=== PATIENT | female | born 1970 | race Caucasian/White ===

== ENCOUNTER 2023-08-10 08:00 | Outpatient (RCR) | payer OTHER, SELFPAY ==
[2023-07-20 09:52] VITALS: BP 181/79; PULSE 72; RESP 18; TEMP 36.7
--- NOTE | 2023-07-20 13:43 | PCM.WC.HP ---
History of Present Illness Date of Service: 07/20/23 Chief Complaint: nonhealing ulcer at site of incision right lateral foot History of Wound: Cecy is a pleasant 52 yo woman that presents to the wound center for evaluation and treatment of a right surgical ulcer referred by Dr. Cerna who performed surgery of her ligaments of her right foot on 05/25/23. She was placed into a boot on 05/31/23 and on 06/06/23 was seen in follow up and the sutures removed and there was dehiscence and increased swelling and was told to discontinue the boot. She was treated with doxycycline and has been using silvadene cream and changing the dressing twice daily with gauze. She reports heavy drainage. She recently completed a second 10 day treatment of doxycyline. The drainage is decreasing and the erythema has decreased but the ulcer is still present and healing very slowly. [facility] Medical History Hypothyroid Home Medications calcitriol 0.25 mcg capsule 0.25 mcg PO DAILY 07/20/23 [History Last Taken Unknown] cholecalciferol (vitamin D3) 125 mcg (5,000 unit) capsule (D3-5000) 5,000 unit PO .COMPLEX 07/20/23 [History Last Taken Unknown] glucosamine HCl 1,500 mg tablet 1,500 mg PO DAILY 07/20/23 [History Last Taken Unknown] levothyroxine 200 mcg tablet mcg PO 07/20/23 [History Last Taken Unknown] magnesium oxide 400 mg PO DAILY 07/20/23 [History Last Taken Unknown] omeprazole 40 mg capsule,delayed release 40 mg PO DAILY 07/20/23 [History Last Taken Unknown] oxybutynin chloride 15 mg tablet,extended release 24 hr 15 mg PO DAILY 07/20/23 [History Last Taken Unknown] ROS Constitutional Constitutional: Denies chills, fatigue or fever(s) Eyes Eyes: Denies blurry vision, change in vision or loss of vision ENT HEENT: Denies dysphagia, hearing loss or sore throat Cardiovascular Cardiovascular: Denies chest pain, edema or palpitations Respiratory/Chest Respiratory/Chest: Denies dry cough, dyspnea, dyspnea on exertion, productive cough or wheezing Gastrointestinal Gastrointestinal: Denies diarrhea, nausea or vomiting Genitourinary Genitourinary: Denies dysuria or polyuria Musculoskeletal Musculoskeletal: Denies arthralgias, joint stiffness or muscle weakness Integumentary Integumentary: Reports erythema and wounds Neurologic Neurologic: Denies dizziness, memory loss or weakness Psychiatric Psychiatric: Denies homicidal ideation or suicidal ideation Endocrine Endocrinology: Denies polydipsia, polyphagia or polyuria Hematologic/Lymphatic Hematologic/Lymphatic: Denies easy bleeding or easy bruising Allergic/Immunologic Allergic/Immunologic: Denies throat swelling, tongue swelling or urticaria Vital Signs Vital Signs Vital Signs: 07/20/23 09:52 Temperature 98.0 F Temperature Source Temporal Pulse Rate 72 Respiratory Rate 18 Blood Pressure 181/79 H Blood Pressure Mean 113 Blood Pressure Source Monitor Blood Pressure Position Sitting Blood Pressure Location Left Arm Oxygen Delivery Method Room Air Physical Exam Const alert, oriented x3 and no apparent distress General Appearance: cooperative and comfortable HEENT normocephalic and head/scalp atraumatic Resp normal respiratory effort Effort and Inspection: able to speak in complete sentences Cardio regular rate and regular rhythm Skin Wounds: wounds noted Wound Narrative: as in clinical panel Psych mental status grossly normal, thought process normal, cooperative and affect normal Debridement Note Debridement Note Wound debrided: right lateral foot Laterality: Right Type of Debridement: Excisional debridement Anesthesia Used: 4% Lidocaine Solution, 5% Lidocaine Gel and Cetacaine Depth: Down to and including healthy tissue and in the subcutaneous layer Percentage of wound debrided: 100 Instrument Used: 5mm curette Tissue Removed: Yellow slough, devitalized tissue Severity: Fat Layer Exposed Amount of bleeding with debridement: Mild Bleeding Controlled with: Compression and gauze Patient tolerated procedure: Patient tolerated procedure well Post-Debridement Measurements and Additional Note: Post-Debridement Measurements/Treatment - Nurse 1 - General Ulcer Assessment Start: 07/20/23 09:51 Freq: Status: Active Protocol: [email or web address].[email or web address] Activity Type Activity Date Activity User E-sign Co-sign Detail Recorded Client Recorded Date Recorded By Document 07/20/23 09:52 NE Desktop 07/20/23 10:09 NE 07/20/23 09:52 - Today's Visit Information Type of service Initial Visit Arrival Mode Ambulatory Accompanied by tamiko Patient Identification Verified (Name & Yes ) Vital Signs Temperature (97.8 F-99.1 F) 98.0 F Temperature Source Temporal Pulse Rate (60-100) 72 Pulse Location Monitor Respiratory Rate (12-18) 18 Respiratory rate source Observation Oxygen Delivery Method Room Air Blood Pressure (90/60-120/80) 181/79 H Blood Pressure Mean 113 Source Monitor Position Sitting Blood Pressure Location Left Arm History Since Last Visit- (Skip if this is Patient's initial visit) Left Footwear Regular Shoe Right Footwear Regular Shoe Pain Scale: 0-10 Numeric Is Patient Pain Free? Yes - Nurse 1 - General Ulcer Measurement Start: 07/20/23 09:51 Freq: Status: Active Protocol: Activity Type Activity Date Activity User E-sign Co-sign Detail Recorded Client Recorded Date Recorded By Document 07/20/23 09:52 NE Desktop 07/20/23 10:09 NE 07/20/23 09:52 Wound Center Nurse 1 #1 Right Ankle -Current Size (cm) - Length 3 -Current Size (cm) - Width 0.9 -Current Size (cm) - Depth 0.3 -Total Square Cm 2.7 -Date of Last Picture (Recall this 07/20/23 field) -Photo Taken Yes -Tunneling No -Undermining/Tunneling No -Circular Undermining No -Exudate Amt Medium -Exudate Type Serous -Wound Margin Thickened & Rolled Under -Granulation Amt Medium (34-66%) -Granulation Quality Pale,[place] -Necrosis Amt Small (1-33%) -Necrotic Tissue Type Adherent Slough -Texture (Ambreen-wound Skin Appearance) Assessed -Moisture (Ambreen-wound Skin Appearance) Assessed -Color (Ambreen-wound Skin Appearance) Assessed -Temperature (Ambreen-wound Skin No Abnormality Appearance) (Pt Warm) -Tenderness on Palpation (Ambreen-wound No Skin Appearance) -Ulcer Cleansing Rinsed/ Irrigated with Saline -Foul Odor after Cleansing No -Anesthetic Used 5% Lidocaine Gel Lower Limb Edema Present NA - Nurse 2 - General Ulcer CM Notes Start: 07/20/23 09:51 Freq: Status: Active Protocol: Activity Type Activity Date Activity User E-sign Co-sign Detail Recorded Client Recorded Date Recorded By Document 07/20/23 10:33 Desktop 07/20/23 11:07 07/20/23 10:33 Wound Center Nurse 2 #1 Right Ankle -Time 10:34 -Correct Patient Yes -Correct Side, Site, Position Yes -Correct Procedure Yes -Procedure Performed Yes -Type of Procedure Debridement -Clinical Debridement Subcutaneous -Tissue Removed Subcutaneous -Post Debridement (cm) - Length 0.9 -Post Debridement (cm) - Width 3.0 -Post Debridement (cm) - Depth 0.3 -Total Square (Post) (cm) 2.70 -Area of Debridement (cm) - Length 0.9 -Area of Debridement (cm) - Width 3.0 -Total Square (Area) (cm) 2.70 -Tunneling No -Undermining/Tunneling No -Circular Undermining No -Wound/Ulcer Outcome Not Healed -Ulcer Cleansing Rinsed/ Irrigated with Saline -Foul Odor after Cleansing No -Bioengineered Tissue No -Bleeding Controlled with Pressure -Treatment Response Procedure Tolerated Well -Debridement - Subq, 1st 20sq cm Yes Pain Scale: 0-10 Numeric Is Patient Pain Free? Yes - Nurse 3 - General Ulcer D/C NN Start: 07/20/23 09:51 Freq: Status: Active Protocol: Activity Type Activity Date Activity User E-sign Co-sign Detail Recorded Client Recorded Date Recorded By Document 07/20/23 11:17 Desktop 07/20/23 11:19 07/20/23 11:17 Wound Care Center Nurse 3 #1 Right Ankle -Ulcer Cleansing Not Cleansed -Foul Odor after Cleansing No -Primary Dressing Applied Aquacel Extra, Mepilex Border -Aquacel Extra 2 -Mepilex Border 2 Right -Lotion applied to leg before No compression wrap -Tubular Bandage Single Layer -Size of Tubigrip Used Size F -Size F ($) 1 Pain Scale: 0-10 Numeric Is Patient Pain Free? Yes - Visit Discharge Discharge Condition Stable Ambulatory Status Ambulatory Transportation Private Auto Medication Reconcilliation completed & Yes provided to patient/care provider Clinical Summary of Care Provided Yes Assessment/Plan Assessment/Plan (1) Right foot ulcer: CODE(S): L97.519 - Non-pressure chronic ulcer of other part of right foot with unspecified severity QUALIFIERS: Non-pressure ulcer stage: with fat layer exposed Qualified Code(s): L97.512 - Non-pressure chronic ulcer of other part of right foot with fat layer exposed (2) Chronic ulcer of right foot with fat layer exposed: CODE(S): L97.512 - Non-pressure chronic ulcer of other part of right foot with fat layer exposed (3) Nonhealing surgical wound: CODE(S): T81.89XA - Other complications of procedures, not elsewhere classified, initial encounter QUALIFIERS: Encounter type: initial encounter Qualified Code(s): T81.89XA - Other complications of procedures, not elsewhere classified, initial encounter (4) Hypothyroid: CODE(S): E03.9 - Hypothyroidism, unspecified QUALIFIERS: Hypothyroidism type: acquired Qualified Code(s): E03.9 - Hypothyroidism, unspecified PLAN: Plan Debridement performed today in clinic as annotated above. At home wound-care instructions: She will clean ulcer with soap and water daily. Will have her dress the ulcer with Aquacel Extra and cover with silicone bordered foam dressing daily. Keep dressing clean and dry. Off-loading: The patient was instructed to avoid pressure and friction on the affected areas. Reposition every 2 hours at minimum. Avoid prolonged standing and/or dangling of legs. When seated, feet should be elevated at chest level. Frequent ambulation is encouraged. Diet: Patient encouraged to increase protein intake while taking caution to avoid high carbohydrate and/or sugar intake. Labs/cultures/imaging: Wound culture taken today. Follow-up: Return in 1 week for wound care follow up. Return sooner or report to the emergency room should symptoms worsen, or new symptoms arise. Note: [employer] speech recognition sawmill or timber yard worker software was used to create portions of this document. Sound-alike and misspelled words, as well as other sawmill or timber yard worker errors may be contained in the documentation.
--- NOTE | 2023-07-25 10:52 | WC ---
Called prescription for Bactrim DS to [facility] pharmacy in [place]. Patient's culture is pos for MRSA. Contacted patient to let her know and to tell her about her prescription. RX paper order is in chart. Instructed to call with any questions or concerns.
--- NOTE | 2023-07-25 16:53 | WC ---
RT LAT ANKLE INITIAL
[2023-07-27 11:34] VITALS: BP 137/86; PULSE 75; RESP 18; TEMP 36.6
--- NOTE | 2023-07-27 12:29 | PCM.WC.PN ---
History of Present Illness Date of Service: 07/27/23 Chief Complaint: nonhealing ulcer at site of incision right lateral foot History of Wound: Cecy is a pleasant 52 yo woman that presents to the wound center for evaluation and treatment of a right surgical ulcer referred by Dr. Cerna who performed surgery of her ligaments of her right foot on 05/25/23. She was placed into a boot on 05/31/23 and on 06/06/23 was seen in follow up and the sutures removed and there was dehiscence and increased swelling and was told to discontinue the boot. She was treated with doxycycline and has been using silvadene cream and changing the dressing twice daily with gauze. She reports heavy drainage. She recently completed a second 10 day treatment of doxycyline. The drainage is decreasing and the erythema has decreased but the ulcer is still present and healing very slowly. Subjective Subjective Cecy returns today for follow up of ulcer right lateral foot. Wound culture was positive for MRSA and she was started on Bactrim DS for 7 days. She is tolerating this well. She notes improvement in the size of the ulcer and also much less drainage. Edema is improved as well. Denies pain, fever, chills, odor. Objective Data Objective Data Vital Signs: Vital Signs Temp Pulse Resp BP O2 Del Method 98 F 75 18 137/86 H Room Air 07/27/23 11:34 07/27/23 11:34 07/27/23 11:34 07/27/23 11:34 07/20/23 09:52 Oxygen Delivery Method Room Air Lab / Micro Data Micro: Microbiology 07/20/23 11:00 Wound Abcess - Ankle Gram Stain - Final 07/20/23 11:00 Wound Abcess - Ankle Wound Culture - Final Meth. resistant Staph. aureus 07/20/23 11:00 Wound Abcess - Ankle Anaerobic Culture - Final No anaerobic bacteria isolated. Physical Exam Const alert, oriented x3 and no apparent distress General Appearance: cooperative and comfortable HEENT normocephalic and head/scalp atraumatic Resp normal respiratory effort Effort and Inspection: able to speak in complete sentences Cardio regular rate and regular rhythm Skin Wounds: wounds noted Wound Narrative: as in clinical panel Psych mental status grossly normal, thought process normal, cooperative and affect normal Debridement Note Debridement Note Wound debrided: right lateral foot Laterality: Right Type of Debridement: Excisional debridement Anesthesia Used: 4% Lidocaine Solution, 5% Lidocaine Gel and Cetacaine Depth: Down to and including healthy tissue and in the subcutaneous layer Percentage of wound debrided: 100 Instrument Used: 3mm curette Tissue Removed: Yellow slough, devitalized tissue Severity: Fat Layer Exposed Amount of bleeding with debridement: Mild Bleeding Controlled with: Compression and gauze Patient tolerated procedure: Patient tolerated procedure well Post-Debridement Measurements and Additional Note: Post-Debridement Measurements/Treatment KATIE - Nurse 1 - General Ulcer Assessment Start: 07/20/23 09:51 Freq: Status: Active Protocol: MONSE Activity Type Activity Date Activity User E-sign Co-sign Detail Recorded Client Recorded Date Recorded By Document 07/20/23 09:52 DVDPlay 07/20/23 10:09 MT Document 07/27/23 11:34 CO Sensserop 07/27/23 11:41 MT 07/20/23 07/27/23 09:52 11:34 KATIE - Today's Visit Information Type of service Initial Visit Follow-up Visit (Physician/MANAG[employer] ) Arrival Mode Ambulatory Ambulatory Accompanied by tamiko Patient Identification Verified (Name & Yes Yes ) Vital Signs Temperature (97.8 F-99.1 F) 98.0 F 98 F Temperature Source Temporal Temporal Pulse Rate (60-100) 72 75 Pulse Location Monitor Monitor Respiratory Rate (12-18) 18 18 Respiratory rate source Observation Observation Oxygen Delivery Method Room Air Blood Pressure (90/60-120/80) 181/79 H 137/86 H Blood Pressure Mean (mm Hg) 113 103 Source Monitor Monitor Position Sitting Sitting Blood Pressure Location Left Arm Right Arm History Since Last Visit- (Skip if this is Patient's initial visit) Has dressing in place as prescribed Yes Has compression in place as prescribed Yes Left Footwear Regular Shoe Regular Shoe Right Footwear Regular Shoe Regular Shoe Pain Scale: 0-10 Numeric Is Patient Pain Free? Yes Yes KATIE Pacheco Nurse 1 - General Ulcer Measurement Start: 07/20/23 09:51 Freq: Status: Active Protocol: Activity Type Activity Date Activity User E-sign Co-sign Detail Recorded Client Recorded Date Recorded By Document 07/20/23 09:52 Wi-Chiop 07/20/23 10:09 MT Document 07/27/23 11:34 CO Sensserop 07/27/23 11:41 MT 07/20/23 07/27/23 09:52 11:34 Wound Center Nurse 1 #1 Right Ankle -Current Size (cm) - Length 3 0.5 -Current Size (cm) - Width 0.9 1.9 -Current Size (cm) - Depth 0.3 0.1 -Total Square Cm 2.7 0.95 -Date of Last Picture (Recall this 07/20/23 field) -Photo Taken Yes No -Tunneling No No -Undermining/Tunneling No No -Circular Undermining No No -Exudate Amt Medium Small -Exudate Type Serous Serosanguineous -Wound Margin Thickened & Flat & Intact Rolled Under -Granulation Amt Medium (34-66%) Large (67-100%) -Granulation Quality Pale,[place] Pale,[place] -Necrosis Amt Small (1-33%) Medium (34-66%) -Necrotic Tissue Type Adherent Slough Adherent Slough -Texture (Ambreen-wound Skin Appearance) Assessed Assessed -Moisture (Ambreen-wound Skin Appearance) Assessed Assessed -Color (Ambreen-wound Skin Appearance) Assessed Assessed -Temperature (Ambreen-wound Skin No Abnormality No Abnormality Appearance) (Pt Warm) (Pt Warm) -Tenderness on Palpation (Ambreen-wound No No Skin Appearance) -Ulcer Cleansing Rinsed/ Rinsed/ Irrigated with Irrigated with Saline Saline -Foul Odor after Cleansing No -Anesthetic Used 5% Lidocaine 5% Lidocaine Gel Gel Lower Limb Edema Present NA WC - Nurse 2 - General Ulcer CM Notes Start: 07/20/23 09:51 Freq: Status: Active Protocol: Activity Type Activity Date Activity User E-sign Co-sign Detail Recorded Client Recorded Date Recorded By Document 07/20/23 10:33 [employer] 07/20/23 11:07 Document 07/27/23 11:54 Desktop 07/27/23 12:08 07/20/23 07/27/23 10:33 11:54 Wound Center Nurse 2 #1 Right Ankle -Time 10:34 11:54 -Correct Patient Yes Yes -Correct Side, Site, Position Yes Yes -Correct Procedure Yes Yes -Procedure Performed Yes Yes -Type of Procedure Debridement Debridement -Clinical Debridement Subcutaneous Subcutaneous -Tissue Removed Subcutaneous Subcutaneous -Post Debridement (cm) - Length 0.9 0.4 -Post Debridement (cm) - Width 3.0 2.4 -Post Debridement (cm) - Depth 0.3 0.2 -Total Square (Post) (cm) 2.70 0.96 -Area of Debridement (cm) - Length 0.9 0.4 -Area of Debridement (cm) - Width 3.0 2.4 -Total Square (Area) (cm) 2.70 0.96 -Tunneling No No -Undermining/Tunneling No No -Circular Undermining No No -Wound/Ulcer Outcome Not Healed Not Healed -Ulcer Cleansing Rinsed/ Rinsed/ Irrigated with Irrigated with Saline Saline -Foul Odor after Cleansing No No -Bioengineered Tissue No No -Bleeding Controlled with Pressure Pressure -Treatment Response Procedure Procedure Tolerated Well Tolerated Well -Debridement - Subq, 1st 20sq cm Yes Yes Pain Scale: 0-10 Numeric Is Patient Pain Free? Yes Yes - Nurse 3 - General Ulcer D/C NN Start: 07/20/23 09:51 Freq: Status: Active Protocol: Activity Type Activity Date Activity User E-sign Co-sign Detail Recorded Client Recorded Date Recorded By Document 07/20/23 11:17 Sensserop 07/20/23 11:19 Document 07/27/23 12:25 CO [employer] 07/27/23 12:27 CO 07/20/23 07/27/23 11:17 12:25 Wound Care Center Nurse 3 #1 Right Ankle -Ulcer Cleansing Not Cleansed Rinsed/ Irrigated with Saline -Foul Odor after Cleansing No -Primary Dressing Applied Aquacel Extra, Aquacel Extra Mepilex Border -Other Dressing adaptic than extra -Primary Dressing Covered/Secured with Dry Gauze, Secured with Tape -Aquacel Extra 2 1 -Mepilex Border 2 Right -Lotion applied to leg before No compression wrap -Tubular Bandage Single Layer -Size of Tubigrip Used Size F -Size F ($) 1 Pain Scale: 0-10 Numeric Is Patient Pain Free? Yes Yes - Visit Discharge Discharge Condition Stable Ambulatory Status Ambulatory Transportation Private Auto Medication Reconcilliation completed & Yes provided to patient/care provider Clinical Summary of Care Provided Yes Assessment/Plan Assessment/Plan (1) Right foot ulcer: CODE(S): L97.519 - Non-pressure chronic ulcer of other part of right foot with unspecified severity QUALIFIERS: Non-pressure ulcer stage: with fat layer exposed Qualified Code(s): L97.512 - Non-pressure chronic ulcer of other part of right foot with fat layer exposed (2) Chronic ulcer of right foot with fat layer exposed: CODE(S): L97.512 - Non-pressure chronic ulcer of other part of right foot with fat layer exposed (3) Nonhealing surgical wound: CODE(S): T81.89XA - Other complications of procedures, not elsewhere classified, initial encounter QUALIFIERS: Encounter type: initial encounter Qualified Code(s): T81.89XA - Other complications of procedures, not elsewhere classified, initial encounter (4) Hypothyroid: CODE(S): E03.9 - Hypothyroidism, unspecified QUALIFIERS: Hypothyroidism type: acquired Qualified Code(s): E03.9 - Hypothyroidism, unspecified PLAN: Plan Debridement performed today in clinic as annotated above. At home wound-care instructions: She will clean ulcer with soap and water daily. Will have her continue to dress the ulcer with Aquacel Extra but place adaptic first and cover all with silicone bordered foam dressing daily. Keep dressing clean and dry. Off-loading: The patient was instructed to avoid pressure and friction on the affected areas. Reposition every 2 hours at minimum. Avoid prolonged standing and/or dangling of legs. When seated, feet should be elevated at chest level. Frequent ambulation is encouraged. Diet: Patient encouraged to increase protein intake while taking caution to avoid high carbohydrate and/or sugar intake. Labs/cultures/imaging: Wound culture was positive for MRSA and she was placed on Bactrim DS. Follow-up: Return in 2 weeks for wound care follow up. Return sooner or report to the emergency room should symptoms worsen, or new symptoms arise. Note: [employer] speech recognition fence installer helper software was used to create portions of this document. Sound-alike and misspelled words, as well as other fence installer helper errors may be contained in the documentation.
--- NOTE | 2023-08-03 10:54 | WC ---
Inital visit #1 right ankle
[2023-08-10 08:08] VITALS: BP 148/85; PULSE 63; RESP 18; TEMP 35.8
--- NOTE | 2023-08-10 13:54 | PN.PCM_ITS ---
History of Present Illness Date of Service: 08/10/23 Chief Complaint: nonhealing ulcer at site of incision right lateral foot History of Wound: Cecy is a pleasant 52 yo woman that presents to the wound center for evaluation and treatment of a right surgical ulcer referred by Dr. Cerna who performed surgery of her ligaments of her right foot on 05/25/23. She was placed into a boot on 05/31/23 and on 06/06/23 was seen in follow up and the sutures removed and there was dehiscence and increased swelling and was told to discontinue the boot. She was treated with doxycycline and has been using silvadene cream and changing the dressing twice daily with gauze. She reports heavy drainage. She recently completed a second 10 day treatment of doxycyline. The drainage is decreasing and the erythema has decreased but the ulcer is still present and healing very slowly. Subjective Subjective Cecy returns today for follow up of ulcer right lateral foot. She notes improvement in the size of the ulcer and almost no drainage. Edema is much improved as well. Denies pain, fever, chills, odor. Objective Data Objective Data Vital Signs: Vital Signs Temp Pulse Resp BP O2 Del Method 96.4 F L 63 18 148/85 H Room Air 08/10/23 08:08 08/10/23 08:08 08/10/23 08:08 08/10/23 08:08 07/20/23 09:52 Oxygen Delivery Method Room Air Lab / Micro Data Micro: Microbiology 07/20/23 11:00 Wound Abcess - Ankle Gram Stain - Final 07/20/23 11:00 Wound Abcess - Ankle Wound Culture - Final Meth. resistant Staph. aureus 07/20/23 11:00 Wound Abcess - Ankle Anaerobic Culture - Final No anaerobic bacteria isolated. Physical Exam Const alert, oriented x3 and no apparent distress General Appearance: cooperative and comfortable HEENT normocephalic and head/scalp atraumatic Resp normal respiratory effort Effort and Inspection: able to speak in complete sentences Cardio regular rate and regular rhythm Skin Wounds: wounds noted Wound Narrative: as in clinical panel Psych mental status grossly normal, thought process normal, cooperative and affect normal Debridement Note Debridement Note Wound debrided: right lateral foot Laterality: Right Type of Debridement: Excisional debridement Anesthesia Used: 4% Lidocaine Solution and 5% Lidocaine Gel Depth: Down to and including healthy tissue and in the subcutaneous layer Percentage of wound debrided: 100 Instrument Used: 3mm curette Tissue Removed: Yellow slough, devitalized tissue Severity: Fat Layer Exposed Amount of bleeding with debridement: Mild Bleeding Controlled with: Compression and gauze Patient tolerated procedure: Patient tolerated procedure well Post-Debridement Measurements and Additional Note: Post-Debridement Measurements/Treatment WC - Nurse 1 - General Ulcer Assessment Start: 07/20/23 09:51 Freq: Status: Active Protocol: MONSE Activity Type Activity Date Activity User E-sign Co-sign Detail Recorded Client Recorded Date Recorded By Document 07/20/23 09:52 MT Desktop 07/20/23 10:09 MT Document 07/27/23 11:34 MT Desktop 07/27/23 11:41 MT Document 08/10/23 08:08 RB Desktop 08/10/23 08:09 RB 07/20/23 07/27/23 08/10/23 09:52 11:34 08:08 - Today's Visit Information Type of service Initial Visit Follow-up Visit Follow-up Visit (Physician/ONBOARDING SPECIALIST (Physician/ONBOARDING SPECIALIST ) ) Arrival Mode Ambulatory Ambulatory Ambulatory Transfer Assistance None Accompanied by tamiko Patient Identification Verified (Name & Yes Yes Yes ) Patient Requires Transmission-Based No Precautions Vital Signs Temperature (97.8 F-99.1 F) 98.0 F 98 F 96.4 F L Temperature Source Temporal Temporal Temporal Pulse Rate (60-100) 72 75 63 Pulse Location Monitor Monitor Monitor Respiratory Rate (12-18) 18 18 18 Respiratory rate source Observation Observation Observation Oxygen Delivery Method Room Air Blood Pressure (90/60-120/80) 181/79 H 137/86 H 148/85 H Blood Pressure Mean (mm Hg) 113 103 106 Source Monitor Monitor Monitor Position Sitting Sitting Semi-Fowlers Blood Pressure Location Left Arm Right Arm Left Arm History Since Last Visit- (Skip if this is Patient's initial visit) Have you changed medications since your No last visit? Any new allergies or adverse reactions No Had a fall/change in ADL's that may No increase risk of falls Signs or symptoms of abuse and/or No neglect since last visit Have you been in the hospital since your No last visit? Has dressing in place as prescribed Yes Yes Has compression in place as prescribed Yes Yes Has offloadiing in place as prescribed No Experienced any changes in pain level or No management Left Footwear Regular Shoe Regular Shoe Right Footwear Regular Shoe Regular Shoe Pain Scale: 0-10 Numeric Is Patient Pain Free? Yes Yes Yes WC - Nurse 1 - General Ulcer Measurement Start: 07/20/23 09:51 Freq: Status: Active Protocol: Activity Type Activity Date Activity User E-sign Co-sign Detail Recorded Client Recorded Date Recorded By Document 07/20/23 09:52 MT Desktop 07/20/23 10:09 MT Document 07/27/23 11:34 MT Desktop 07/27/23 11:41 MT Document 08/10/23 08:08 RB Desktop 08/10/23 08:09 RB 07/20/23 07/27/23 08/10/23 09:52 11:34 08:08 Wound Center Nurse 1 #1 Right Ankle -Combined with other wound No -Current Size (cm) - Length 3 0.5 0.1 -Current Size (cm) - Width 0.9 1.9 0.1 -Current Size (cm) - Depth 0.3 0.1 0.1 -Total Square Cm 2.7 0.95 0.01 -Date of Last Picture (Recall this 07/20/23 field) -Photo Taken Yes No Yes -Tunneling No No No -Undermining/Tunneling No No No -Circular Undermining No No No -Exudate Amt Medium Small Medium -Exudate Type Serous Serosanguineous Serosanguineous -Wound Margin Thickened & Flat & Intact Distinct, Rolled Under Outline Attached -Granulation Amt Medium (34-66%) Large (67-100%) Medium (34-66%) -Granulation Quality Pale,Demorest Pale,Demorest Demorest -Slough/Fibrin Yes -Necrosis Amt Small (1-33%) Medium (34-66%) Large (67-100%) -Necrotic Tissue Type Adherent Slough Adherent Slough Adherent Slough -Structure Exposed N/A -Texture (Ambreen-wound Skin Appearance) Assessed Assessed Scarring -Moisture (Ambreen-wound Skin Appearance) Assessed Assessed Assessed -Color (Ambreen-wound Skin Appearance) Assessed Assessed Assessed -Temperature (Ambreen-wound Skin No Abnormality No Abnormality No Abnormality Appearance) (Pt Warm) (Pt Warm) (Pt Warm) -Tenderness on Palpation (Ambreen-wound No No No Skin Appearance) -Ulcer Cleansing Rinsed/ Rinsed/ Wound Cleanser Irrigated with Irrigated with Saline Saline -Foul Odor after Cleansing No No -Anesthetic Used 5% Lidocaine 5% Lidocaine 5% Lidocaine Gel Gel Gel Lower Limb Edema Present NA Yes Right Calf (cm) 7.5 Right Ankle (cm) 24.3 - Nurse 2 - General Ulcer CM Notes Start: 07/20/23 09:51 Freq: Status: Active Protocol: Activity Type Activity Date Activity User E-sign Co-sign Detail Recorded Client Recorded Date Recorded By Document 07/20/23 10:33 GM Desktop 07/20/23 11:07 GM Document 07/27/23 11:54 GM Desktop 07/27/23 12:08 GM Document 08/10/23 08:15 GM Desktop 08/10/23 08:23 GM 07/20/23 07/27/23 08/10/23 10:33 11:54 08:15 Wound Center Nurse 2 #1 Right Ankle -Time 10:34 11:54 08:16 -Correct Patient Yes Yes Yes -Correct Side, Site, Position Yes Yes Yes -Correct Procedure Yes Yes Yes -Procedure Performed Yes Yes Yes -Type of Procedure Debridement Debridement Debridement -Clinical Debridement Subcutaneous Subcutaneous Subcutaneous -Tissue Removed Subcutaneous Subcutaneous Subcutaneous -Post Debridement (cm) - Length 0.9 0.4 0.2 -Post Debridement (cm) - Width 3.0 2.4 0.2 -Post Debridement (cm) - Depth 0.3 0.2 0.1 -Total Square (Post) (cm) 2.70 0.96 0.04 -Area of Debridement (cm) - Length 0.9 0.4 0.2 -Area of Debridement (cm) - Width 3.0 2.4 0.2 -Total Square (Area) (cm) 2.70 0.96 0.04 -Tunneling No No No -Undermining/Tunneling No No No -Circular Undermining No No No -Wound/Ulcer Outcome Not Healed Not Healed Not Healed -Ulcer Cleansing Rinsed/ Rinsed/ Rinsed/ Irrigated with Irrigated with Irrigated with Saline Saline Saline -Foul Odor after Cleansing No No No -Bioengineered Tissue No No -Bleeding Controlled with Pressure Pressure Pressure -Treatment Response Procedure Procedure Procedure Tolerated Well Tolerated Well Tolerated Well -Debridement - Subq, 1st 20sq cm Yes Yes Yes Pain Scale: 0-10 Numeric Is Patient Pain Free? Yes Yes Yes - Nurse 3 - General Ulcer D/C NN Start: 07/20/23 09:51 Freq: Status: Active Protocol: Activity Type Activity Date Activity User E-sign Co-sign Detail Recorded Client Recorded Date Recorded By Document 07/20/23 11:17 GM Desktop 07/20/23 11:19 GM Document 07/27/23 12:25 MT Desktop 07/27/23 12:27 MT Document 08/10/23 08:33 DS Desktop 08/10/23 08:34 DS 07/20/23 07/27/23 08/10/23 11:17 12:25 08:33 Wound Care Center Nurse 3 #1 Right Ankle -Ulcer Cleansing Not Cleansed Rinsed/ Irrigated with Saline -Foul Odor after Cleansing No -Primary Dressing Applied Aquacel Extra, Aquacel Extra C Hydrogel ($), Mepilex Border Mepilex Border -Other Dressing adaptic than extra -Primary Dressing Covered/Secured with Dry Gauze, Secured with Tape -Aquacel Extra 2 1 -Mepilex Border 2 1 Right -Lotion applied to leg before No compression wrap -Tubular Bandage Single Layer -Size of Tubigrip Used Size F -Size F ($) 1 Pain Scale: 0-10 Numeric Is Patient Pain Free? Yes Yes Yes - Visit Discharge Discharge Condition Stable Stable Ambulatory Status Ambulatory Ambulatory Transportation Private Auto Private Auto Medication Reconcilliation completed & Yes No provided to patient/care provider Clinical Summary of Care Provided Yes Yes Assessment/Plan Assessment/Plan (1) Right foot ulcer: CODE(S): L97.519 - Non-pressure chronic ulcer of other part of right foot with unspecified severity QUALIFIERS: Non-pressure ulcer stage: with fat layer exposed Qualified Code(s): L97.512 - Non-pressure chronic ulcer of other part of right foot with fat layer exposed (2) Chronic ulcer of right foot with fat layer exposed: CODE(S): L97.512 - Non-pressure chronic ulcer of other part of right foot with fat layer exposed (3) Nonhealing surgical wound: CODE(S): T81.89XA - Other complications of procedures, not elsewhere classified, initial encounter QUALIFIERS: Encounter type: initial encounter Qualified Code(s): T81.89XA - Other complications of procedures, not elsewhere classified, initial encounter (4) Hypothyroid: CODE(S): E03.9 - Hypothyroidism, unspecified QUALIFIERS: Hypothyroidism type: acquired Qualified Code(s): E03.9 - Hypothyroidism, unspecified PLAN: Plan Debridement performed today in clinic as annotated above. At home wound-care instructions: She will clean ulcer with soap and water daily. Will have her dress the ulcer with Hydrogel and cover with silicone bordered foam dressing daily. Keep dressing clean and dry. Off-loading: The patient was instructed to avoid pressure and friction on the affected areas. Reposition every 2 hours at minimum. Avoid prolonged standing and/or dangling of legs. When seated, feet should be elevated at chest level. Frequent ambulation is encouraged. Diet: Patient encouraged to increase protein intake while taking caution to avoid high carbohydrate and/or sugar intake. Labs/cultures/imaging: Wound culture was positive for MRSA and she was placed on Bactrim DS. Follow-up: She will be discharged and advised to follow up if ulcer returns. Return sooner or report to the emergency room should symptoms worsen, or new symptoms arise. Note: [employer] speech recognition customer retention representative software was used to create portions of this document. Sound-alike and misspelled words, as well as other customer retention representative errors may be contained in the documentation.
== END 2023-08-14 23:59 | disposition home or self-care (01) ==
LOC: WC 08:00
PROVIDERS: PCP Internal Medicine; Referring Provider Podiatrist Foot & Ankle Surgery; Visit Provider Family Medicine
DX: L97.512 Non-pressure chronic ulcer of other part of right foot with fat layer exposed (principal); T81.89XA Other complications of procedures, not elsewhere classified, initial encounter; E03.9 Hypothyroidism, unspecified
CPT/HCPCS: 11042; 87070; 87075; 87077; 87186; 87205